=== PATIENT | female | born 1945 | race African-American/Black ===

== ENCOUNTER 2022-04-05 04:02 | Emergency (ER) | payer BC ==
[~2022-04-05] VITALS: Ht 157.5 cm; Wt 70.0 kg
[2022-04-05] MEDS ORDERED: LIDOCAINE HCL/PF 1% 10 MG/ML 5ML VIAL INFIL ONE (05:15)
[2022-04-05] MEDS ORDERED: BACITRACIN ZINC OINT UDPKT TOP ONE (05:15)
[2022-04-05] MEDS ORDERED: ACETAMINOPHEN 325MG TABLET PO STA (05:26)
[2022-04-05] MEDS ORDERED: IBUP-2029 MT (06:30)
[2022-04-05] MEDS ORDERED: T3 PO (06:30)
[2022-04-05] MEDS ORDERED: KETOROLAC 60MG/2ML VIAL IM ONE (06:30)
[2022-04-05] MEDS ORDERED: CEPH500T MT (06:30)
[2022-04-05 06:45] VITALS: BP 125/75
== END 2022-04-05 06:46 | disposition home or self-care (01) ==
LOC: EDBD 04:02 → ER 04:02
DX: S67.01XA Crushing injury of right thumb, initial encounter (principal); S61.011A Laceration without foreign body of right thumb without damage to nail, initial encounter; E78.00 Pure hypercholesterolemia, unspecified; W22.8XXA Striking against or struck by other objects, initial encounter; Y93.89 Activity, other specified; Y92.810 Car as the place of occurrence of the external cause
CPT/HCPCS: 73140; 96372; 99283; J1885; J3490